=== PATIENT | female | born 1975 | race Caucasian/White ===

== ENCOUNTER 2017-06-11 08:01 | Day surgery (SDC) | payer OTHER ==
[2017-06-10] MEDS: CeFAZolin 2 Gm/50 mL D5W IV Premix IV SCH (06:00)
[2017-06-11] VITALS (14 sets, daily range): BP systolic 111–130; BP diastolic 63–81; PULSE 58–104; RESP 12–21; O2SAT 95–100
[~2017-06-11] VITALS: Ht 172.7 cm; Wt 92.0 kg
[2017-06-11] MEDS: Lactated Ringer's 1,000 ML IV SCH ×6 (05:00→22:33)
[2017-06-11] MEDS: CeFAZolin 2 Gm/50 mL D5W IV Premix IV SCH ×2 (06:00→10:30)
[~2017-06-11 08:01] MED LIST: ALBU8.5H2 INHALATION; CINN500C14 PO; Dextrose 10% 250 ML IV PRN; MULT-1018 PO; Phenazopyridine 97.5 mg Tablet PO PRN; vitamin d
[2017-06-11] MEDS ORDERED: EPHEDrine/NS 5 mg/mL 5 mL Syringe ONE (08:02)
[2017-06-11] MEDS ORDERED: fentaNYL-PF 50 mCg/mL 2 mL Inj ONE (08:02)
[2017-06-11] MEDS ORDERED: Morphine PF 1 mg/mL 10 mL Inj ONE (08:02)
[2017-06-11] MEDS ORDERED: Dexamethasone 4 mg/mL Inj ONE (08:02)
[2017-06-11] MEDS ORDERED: MetoCLOpramide 5 mg/mL 2 mL Inj ONE (08:02)
[2017-06-11] MEDS ORDERED: Rocuronium 10 mg/mL 5 mL Inj ONE (08:02)
[2017-06-11] MEDS ORDERED: Furosemide 10 mg/mL 4 mL Inj ONE (08:02)
[2017-06-11] MEDS ORDERED: Ondansetron 2 mg/mL 2 mL Inj ONE (08:02)
[2017-06-11] MEDS ORDERED: Lidocaine 1%-Epi 1:100,000 20 mL Inj INJ ONE ×2 (11:10→12:09)
[2017-06-11] MEDS ORDERED: Sodium Chloride LOK Flush 10 mL Syringe XX ONE (11:10)
[2017-06-11] MEDS ORDERED: Gentamicin 40 mg/mL 2 mL Inj IRRIGATION ONE (11:11)
[2017-06-11] MEDS ORDERED: Phenylephrine 10,000 mCg/mL Inj IVPUSH PRN (11:30)
[2017-06-11] MEDS ORDERED: Lactated Ringer's 1,000 ML IV SCH (11:30)
[2017-06-11] MEDS ORDERED: Dexamethasone 4 mg/mL Inj IVPUSH PRN (11:30)
[2017-06-11] MEDS ORDERED: HYDROmorphone 1 mg/mL Inj IVPUSH PRN (11:30)
[2017-06-11] MEDS ORDERED: Lactated Ringer's 500 ML IV PRN (11:30)
[2017-06-11] MEDS ORDERED: EPHEDrine Sulfate 50 mg/mL Inj IVPUSH PRN (11:30)
[2017-06-11] MEDS ORDERED: MetoCLOpramide 5 mg/mL 2 mL Inj IVPUSH PRN ×2 (11:30→14:05)
[2017-06-11] MEDS ORDERED: fentaNYL-PF 50 mCg/mL 2 mL Inj IVPUSH PRN (11:30)
[2017-06-11] MEDS ORDERED: Ondansetron 2 mg/mL 2 mL Inj IVPUSH PRN ×2 (11:30→14:05)
--- NOTE | 2017-06-11 11:30 | PCM.HPANE ---
Patient Data Date of Service: Jun 11, 2017 ([id number]) Surgeon Admitting Provider: Attending Provider:Malvin Muse MD Primary Care Physician:Zain Other Provider:Shirley Pal Anesthesia Reason for Visit Uterovag Prolapse,Cystocele,Rectocele,Incontinence Ht/WT & BMI Height (Feet): 5 Height (Inches): 8.00 Weight (Kilograms): 92.000 Body Mass Index 30.00 Allergies Coded Allergies: prednisone (Verified Allergy, Severe, dangerously tachycardic, 06/06/17) hydrocodone (Verified Allergy, Unknown, extremely nauseated, "felt crazy" , 06/06/17) Past Anesthesia History Anesthesia History: Denies:: Abnormal Airway, Anesthesia Reactions (vomiting after ), Difficult Intubation, Fam Anesthesia Reaction (mother- "ballistic" ) Diabetes History Hx Diabetes?: No MRSA MRSA: No Medications Hypertension Medication: No Home Meds Incl Beta Lynne: No Reported Medications [vitamin d] No Conflict CheckUnknown Dose DAILY 06/06/17 Cinnamon Bark (Cinnamon)500 Mg [id number] Mg PO DAILY 06/06/17 Multivitamin (Multi Vitamin Daily)1 Each Tablet1 Each PO DAILY 30 Days Ref 0 06/06/17 Albuterol HFA (Proair HFA)8.5 Gm Hfa.aer.ad2 Puffs INHALATION Q4H PRN For Shortness of Breath #1 INHALER 06/06/17 History History of ENT Problems?: Yes HEENT History: Positive for:: Hearing Problem 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) Denies:: Abnormal Airway Cataracts Difficult Intubation Dysphagia Glaucoma Sinus Problem Denture Type: None Teeth Condition: Within Normal Limits Hx of Heart Problems?: No Cardiovascular History: Denies:: AICD Abdominal Aortic Aneurism Atrial Fibrillation Chest Pain Edema Heart Murmur Hypertension Irregular Heartbeat Pacemaker Peripheral Vascular Rheumatic Fever Hx of Respiratory Problem?: Yes Respiratory History: Positive for:: Asthma Use of Inhalers / NEBS Denies:: COPD Emphysema Oxygen Administration Pneumonia Tuberculosis Use of C-PAP Machine Hx Neurologic Problems?: Yes Neurological History: Positive for:: Seizures (as teenager- petit mal- not for last 20 years ) Denies:: Alzheimer's Disease CVA Headaches Multiple Sclerosis Parkinson's Disease TIA Hx of GI Problems?: Yes Hx of Problems?: Yes Genitourinary History: Denies:: Urinary Tract Infection Other Pertinent History: self caths as indicated - urinary retention Female Hx: Denies:: Currently Problems with Breasts? Skin History: Denies:: History Skin Disorders? Pressure Ulcers Hx Musculoskeletal Problems?: Yes Musculoskeletal History: Positive for:: Osteoarthritis Denies:: Back Injury Degenerative Joint Fibromyalgia Joint Replacement Musculoskeletal Trauma (kneecaps- weak - from chronic prednisone ) Myasthenia Gravis Systemic Lupus Hx of Psycho/Social Problems?: No Psycho Social History: Denies:: Anxiety Hx Depression Hx Surgeries?: Yes (tonsil, ) Hx Any Other Health Problems?: Yes Other History: Denies:: Cancer Thyroid Disease History Blood Transfusions: Positive for:: Accept Blood Products? Denies:: Blood Transfusions Hx Diabetes: No Hx Alcohol Use: YesAlcoholic Drinks Per Day: 3-5 drinks weekHx Substance Use: NoHave You Smoked inLast 12 mo: No Stop/Bang S-Snoring: Do You Snore Loudly: No T-Tired: feel tired, fatigued: No O-Obsered: Observed not breath: No P-Blood Pressure: treated: No B- Body Mass Index > 35 kg/m2: No A- Age over 50: No N- Neck Large Circumference: No G- Gender Male: No CHING Total Score: 0 Risk Assessment Category Category 1A: Patient has history of documented sleep apnea, and HAS NOT received any narcotic, sedative or anesthesia administration during this stay. Category 1B: Patient has history of documented sleep apnea, and HAS received any narcotic , sedative or anesthesia administration during this stay Category 2: Patient has SUSPECTED Obstructive Sleep Apnea, and HAS received any narcotic , sedative or anesthesia administration during this stay. Category 3: Patient has SUSPECTED Obstructive Sleep Apnea and HAS NOT received narcotic, sedative or anesthesia administration during this stay. Category 4: Outpatient in Procedural Areas with known sleep apnea or who screen positive for High Risk via the STOP/BANG questionnaire. Exam Exam Vital Signs Vital Signs Date Time Temp Pulse Resp B/P Pulse Ox O2 Delivery O2 Flow Rate FiO2 06/11/17 08:30 35.6 82 17 111/81 96 Room Air General Appearance: Alert, Oriented X3, Cooperative, No Acute Distress HEENT/AIRWAY: MP 2 Lungs: Clear to Auscultation, Normal Air Movement Heart: Exam Unremarkable Meds/Labs/Diagnostics Admission Meds Current Medications Lactated Ringer's (Lr) 1,000 ml @ 120 mls/hr Q8H20M IV Last administered on 10:11; Start 06/11/17 at 05:00; Stop 06/11/17 at 13:19 Lidocaine/ Epinephrine (Xylocaine 1%-Epinephrine 1:100,000 Inj) 40 ml STK-MED ONCE INJ Last administered on 06/11/17 11:10; Start 06/11/17 at 11:10; Stop 06/11 at 11:13; Status DC Sodium Chloride (Saline Lucila Flush) 40 ml STK-MED ONCE XX Last administered on 11:10; Start 06/11/17 at 11:10; Stop 06/11/17 at 11:13; Status DC Gentamicin Sulfate (Gentamicin Inj) 80 mg STK-MED ONCE IRRIGATION Last administered on 06/11/17 11:11; Start 06/11/17 at 11:11; Stop 06/11/17 at 11:13; Status DC Plan Impression Patient chart reviewed, patient interviewed and anesthestic plan with risks, benefits, and alternatives discussed, and informed consent obtained. ASA Physical Status: ASA2 Mod Systemic Disease Anesthetic Plan: GA Bene/Risks/Altern/Consents: Yes HP Complete Prior to Induction: Yes Manny Ortega MD Jun 11, 2017 11:30
[2017-06-11] MEDS ORDERED: Sodium Chloride LOK Flush 10 mL Syringe IVFLUSH ONE (12:09)
[2017-06-11] MEDS ORDERED: Estrogens Conjugated 30 Gm Vaginal Cream VAGINAL ONE (13:24)
[2017-06-11] MEDS ORDERED: Lactated Ringer's 1,000 ML IV ONE (13:41)
[2017-06-11] MEDS ORDERED: hydrOXYzine Inj 50 MG/1 mL SDV IM PRN (14:00)
[2017-06-11] MEDS ORDERED: EPHEDrine Sulfate 50 mg/mL Inj IM PRN (14:00)
[2017-06-11] MEDS ORDERED: Promethazine Inj 12.5 MG in Dextrose 5%-Pha MIX 50 ML IV PRN (14:00)
--- NOTE | 2017-06-11 14:03 | PCM.ANEP1 ---
Post Anesthesia PACU Phase 1 Assessment Vital Signs Vital Signs Date Time Temp Pulse Resp B/P Pulse Ox O2 Delivery O2 Flow Rate FiO2 06/11/17 08:30 35.6 82 17 111/81 96 Room Air Anesthetic Administered: GA Level of Alertness: Awake, talking Pain: No Nausea or Vomiting: Yes CV Function & Hydration Stable: Yes Airway Device: Oxygen Delivery: Simple Mask Lungs: Clear to Auscultation, Normal Air Movement PACU Phase 2 Assessment Complications: No Patient Instructions Provided: N/A Manny Ortega MD Jun 11, 2017 14:03
[2017-06-11] MEDS ORDERED: Acetaminophen IV 1,000 MG in IV Premix 1 EACH IV PRN (14:05)
[2017-06-11] MEDS ORDERED: diphenhydrAMINE 25 mg Capsule PO PRN (14:05)
[2017-06-11] MEDS ORDERED: Alum-Mag Hydrox-Simeth 30 mL Suspension PO PRN (14:05)
[2017-06-11] MEDS ORDERED: hydrOXYzine Inj 50 MG/1 mL SDV IM ONE (14:08)
[2017-06-11] MEDS ORDERED: Albuterol 2.5 mg/3 mL Inhalation Solution NEB PRN (20:00)
--- NOTE | 2017-06-11 22:13 | PCM.SURGOP ---
Surgical Operative Report Date of Service: Jun 11, 2017 Pre Operative Diagnosis POPQ stage 2 anterior, posterior and apical Uterovaginal prolapse Stress incontinence in female Post Operative Diagnosis POPQ stage 2 Cystocele Deficient pubocervical/pubovesical fascia POPQ stage 2 Rectocele POPQ stage 2 Uterine prolapse and enterocele stress incontinence in female Procedure: 1. vaginal hysterectomy with bilateral salpingectomy, 2. anterior repair with Xenform graft augmentation 3. posterior repair 4. high uterosacral ligament vaginal vault suspension, enterocele repair 5. TVT-obturator sling and cystoscopy Surgeon and Coordinator Volunteer Services: Surgeon: Malvin Muse MD Assistants: Zuly [place] Indication for Procedure Her assessment to date includes: 1. Feeling of Incomplete bladder emptying; urodynamics revealed normal post- void residuals 2. Cystocele, midline N81.11 (618.01): 3. Rectocele N81.6 (618.04): 4. Uterovaginal prolapse, incomplete N81.2 (618.2): 5. Urgency of urination R39.15 (788.63): 6. Stress incontinence in female N39.3; urodynamic stress incontinence with normal leak point pressures The patient is not interested in a pessary. The prolapse and urinary issues are adversely affecting her quality of life. The patient is a candidate for a vaginal hysterectomy with bilateral salpingectomy, anterior repair and posterior repair with possible biologic graft augmentation, high uterosacral ligament vaginal vault suspension, enterocele repair and TVT-obturator sling. The patient signed the consent form. She agreed with the risks, benefits, and alternatives to surgery. The risks included but not limited to recurrence or persistence of prolapse, recurrence of persistence of incontinence, development of voiding dysfunction, development of urinary urgency, urgency incontinence, frequency, and need for intermittent self-catheterization or prolonged indwelling catheterization, injury to other organs including bladder, bowel, nerves or blood vessels. Need for blood transfusion, need for temporary colostomy or urinary stenting. Development of vaginal scarring, dyspareunia, defecatory dysfunction, recurring pain, hematoma formation, urinary tract infection, cellulitis, necrotizing fascitis, and medical risks including myocardial infarction, stroke or VTE. She also understood the FDA warnings associated with the use of vaginal mesh (dysparunia, vaginal erosion, erosion into bowel/bladder/urethra, requiring further surgery to correct these complications). The patient understood the risks and benefits and consented to surgery. Findings: see dictation Procedure Details SURGICAL TECHNIQUE: The patient was brought to the operating room. She was placed under general anesthesia. She was prepped and draped in the normal fashion for vaginal surgery. She was given a dose of IV ancef 2g intraoperatively. 1. Vaginal Hysterectomy and bilateral salpingectomy: Lidocaine 0.5% with 1:200,000 of epinephrine was infiltrated pericervically. A pericervical incision was made with a scalpel. Anteriorly, the bladder was sharply dissected off the cervix. Posteriorly, the cul de sac was entered with Sharp dissection. The bowels were packed with a mini-laparotomy sponge. The uterosacral ligaments were bilaterally clamped, divided and then tied in a transfixion fashion with 0- vicryl suture. Anteriorly, the Uterovesical peritoneum was entered with sharp dissection and the bladder was retracted upward with a right-angle retractor. The uterine vessels were then coagulated, and ligated using the Ligasure Impact System. The uterine body was delivered posteriorly. The utero-ovarian ligaments were clamped bilaterally, coagulated, ligated and then tied using 0-Vicryl suture. The ovaries and tubes appeared normal. We proceeded with bilateral salpingectomy. The tubes were clamped at their base and cauterized then excised with Ligasure Impact. The base was tied with 0-vicryl suture. The uterus/cervix, and tubes were sent to pathology. It was noted that the pedicles and cuff were hemostatic. 2. High uterosacral ligament vaginal vault suspension, cystoscopy and enterocele repair: Mini laparotomy sponges were packed to retract the bowel upwards. A pair of Allis clamps were placed along the intraperitoneal portions of the vagina at the 5 and 7 o'clock positions. Tension along these Allis clamps allowed for identification of the uterosacral ligaments bilaterally. A pair of 0 Vicryl sutures were passed around the uterosacral ligaments of the level of the ischial spine bilaterally, totalling 4. Cystoscopy was performed. Tension was applied along the vault sutures and spillage of pyridium-stained urine was noted briskly effluxing from both ureteric orifices. Next, two 3-0 Prolene sutures were placed transversely through the cul-de-sac peritoneum. This was performed while using a gloved finger in the rectum as to avoid penetrating the underlying rectal mucosa. Tying these sutures obliterated the enterocele. 3. Anterior colporrhaphy with Xenform graft augmentation: Lidocaine 0.5% with 1 /046820 epinephrine was infiltrated along the anterior vaginal wall mucosa. A midline vertical incision was made through the anterior vaginal wall. The vaginal wall was dissected off the underlying pubocervical and pubovesical fascia. The dissection was extended laterally beyond the ischial pubic rami. It was noted that the pubocervical and pubovesical fascial tissues were deficient and thin. The cystocele was plicated in 2 layers, the first layer with 2-0 Vicryl suture in interrupted fashion, the second layer with 2-0 Tycron suture in an interrupted fashion. A trapezoidal piece of Xenform graft was then incorporated atop the plicated area far laterally. The graft was secured to the obturator internus membrane. At the level of the bladder neck, an upside down triangular piece of graft was excised so that there was no over-support created along the level of the bladder neck. Apically , the graft was passed through the proximal uterosacral ligament sutures. A mild amount of excess anterior vaginal mucosa was excised. The vault suspension sutures were then passed through the planned apex of the vagina. Two were placed through the anterior apex and the other two, through the posterior apex. The vagina was then reapproximated using 3-0 Vicryl suture in a running-locked fashion. The high uterosacral ligament vaginal vault suspension sutures were tied and this elevated the apex of the vagina high up into the hollow of the sacrum. 3. Posterior colpoperineorrhaphy: Lidocaine 0.5% with 1:200,000 of epinephrine was infiltrated along the perineum and posterior vaginal wall mucosa. A midline incision was made through the perineum with a scalpel and a midline vertical incision was made through the posterior vaginal wall. The vaginal mucosa was dissected off the underlying rectovaginal tissues. It was noted the fascial tissues were sufficient. The rectocele was plicated in one midline layer using 2-0 Vicryl suture in an interrupted fashion. A mild amount of excess posterior vaginal mucosa was excised. The vagina was reapproximated with 3-0 vicryl suture in a running-locked fashion. The perineum was reapproximated using 2-0 Vicryl suture in an interrupted fashion. The skin was reapproximated using 3- 0 Vicryl suture in a subcuticular fashion. 5. TVT-Obturator sling and cystoscopy. Lidocaine 0.5% with 1/891592 epinephrine was infiltrated along the anterior vaginal wall mucosa at the level of the mid urethra. Midline vertical incision was made at that level, 2 periurethral tunnels were created with Metzenbaum scissors. Two stab incisions were created at the skin at the groin at a level 2 cm superior to the external urethral meatus and 2 cm lateral to the fold created between the vulva and thigh. Neumann catheter had already been inserted. A butterfly guide was inserted into the right periurethral tunnel, a curved helical needle was inserted on top of the guide and rotated out to the ipsilateral skin incision. The same procedure was performed on the contralateral side. Next the Neumann catheter was removed. Cystoscopy was performed. There was no inadvertent penetration of the sling through the vagina, urethra or bladder. In addition, the ureteric orifices were noted bilaterally to be functional by the brisk spillage of pyridium-stained urine. The bladder appeared normal. The plastic sheaths of the sling were removed. The bladder was filled with 300 mL of sterile water. Using the Crede maneuver, sling tension was appropriately adjusted. Also a thick right angle clamp was allowed to easily pass behind the sling so that the sling was placed in a tension-free manner. The sling ends were cut at the level of the skin. The skin was reapproximated using Mastisol, Steri-Strips and band-aids. The vagina was reapproximated using 3-0 Vicryl suture in a running fashion The vagina was packed with Premarin-lubricated packing. An indwelling neumann catheter was connected to straight drainage. The patient's hips were periodically deflexed during the case. There were no complications. The EBL was 250 ml. All sponges and instruments were accounted for. She was taken to the recovery room in stable condition. Complications There were no periprocedural complications identified. Surgical Specimen Removed: Yes Specimen sent to Pathology: Yes Surgical Specimen description: uterus/cervix, bilateral tubes Anesthetic Plan: GA Grafts, Implants: Grafts-See Implant Record, Implants-See Implant Record Output, Estimated Blood Loss: 250 (ml EBL) Blood Administration during umanzor: No Drains: None Catheters: Urethral 2 Way Neumann Post Operative Plan overnight stay in bed as outpatient as she requires a voiding trial in the am copies to: Malvin Muse MD; James Joyner MD; Zuly Washington William Andre Z MD Jun 11, 2017 22:13
[2017-06-12 04:25] VITALS: BP 99/66; PULSE 82; RESP 16; O2SAT 98
[2017-06-12] MEDS: Lactated Ringer's 1,000 ML IV SCH (06:35)
[2017-06-12 06:52] LABS: BASOPHILS % (AUTO) 0.2 % (0-3); EOSINOPHILS % (AUTO) 0 % (0-5); MONOCYTES % (AUTO) 8.1 % (4-12); Mean Corpuscular Hemoglobin 28.8 pg (27.0-35.0); Mean Corpuscular Volume 86.8 fL (81-100); NEUTROPHILS % (AUTO) 76.2 % (40-74); Platelet Count 300 bil/L (150-400)
[2017-06-12 07:58] VITALS: BP 101/65; PULSE 88; RESP 16; O2SAT 98
[2017-06-12] MEDS ORDERED: Heparin 5,000 Unit/mL Inj SUBQ SCH (08:30)
[2017-06-12] MEDS ORDERED: Senna-Docusate 8.6-50 mg Tablet PO SCH (08:30)
--- NOTE | 2017-06-12 12:03 | PCM.DIGYN ---
Surgical Discharge Instruction Dates of Hospitalization Date of Hospital Admission 06/11/17 as outpatient, overnight Providers Admitting Physician: Primary Care Physician: Nopcp Attending Physician: Malvin Muse MD Diagnosis at Time of Discharge Diagnosis at time of discharge POPQ stage 2 Cystocele Deficient pubocervical/pubovesical fascia POPQ stage 2 Rectocele POPQ stage 2 Uterine prolapse and enterocele stress incontinence in female Post-operative diagnosis POPQ stage 2 Cystocele Deficient pubocervical/pubovesical fascia POPQ stage 2 Rectocele POPQ stage 2 Uterine prolapse and enterocele stress incontinence in female Problems: Diet Discharge Diet: No restrictions Activity Discharge Activity-General: Restrict lifting to no greater than (10 lb for 6 wk ) Dressing and Incisional Care Dressing Care: Allow Steri Stripes to fall off Hygiene: May shower Follow Up Plan Follow-up appointment: Weeks ([address] Muse's MA, and in [address] Muse) Call your provider for: Fever, Chills, Shortness of breath, Vomitting, Drainage at incision, Heavy vaginal bleeding, Wound redness, Increasing pain Malvin Muse MD Jun 12, 2017 12:03
--- NOTE | 2017-06-12 12:07 | PCM.PNSURG ---
Subjective Date of Service: Jun 12, 2017 Date of Service: Jun 12, 2017 Visit Information: Reason for Visit Uterovag Prolapse,Cystocele,Rectocele,Incontinence Surgery/Surgery Date Post-Op Day # 1 Date of Admission: Hospital Day # Subjective: AVSS pain controlled eating ambulatory failed void trial Hct stable OR explained some dizziness (has had this with previous narcotic use - she received spinal duramorph which also caused pruritis) Gastrointestinal: Good Appetite Pain Management: PO Postop Activity: Ambulating Independently Objective Vital Sign- Last 8 Hours Date Time Temp Pulse Resp B/P Pulse Ox O2 Delivery O2 Flow Rate FiO2 06/12/17 07:58 36.8 88 16 101/65 98 Room Air 06/12/17 04:25 36.7 82 16 99/66 98 Room Air Intake and Output- Last 8 Hour 06/12/17 Cumulative From/Thru 07:00 06/06/17 15:49 - 06/12/17 06:45 Intake Total 1770 ml 4389 ml Output Total 2000 ml 3725 ml Balance -230 ml 664 ml Intake Oral 500 ml 500 ml IV Total 1270 ml 3889 ml Output Urine Total 2000 ml 3225 ml Estimated Blood Loss 500 ml General: Alert, Oriented X3, Cooperative Lungs: Clear to Auscultation Heart: Exam Unremarkable Abdomen: Benign, Soft Catheters: Urethral 2 Way Guadalupe (16 F catheter reinserted by Dr. Muse as she failed the void trial) Result Diagram: 06/12/17 0630 Assessment & Plan Impression stable for discharge today Problems: Plan Guadalupe teaching discharge home later today when ready f/u in 1 and 2 wk VTE Prophylaxis: Sub-Q Heparin (Unfractionated) Resuscitation Status: CPR: Attempt Resuscitation copies to: Malvin Muse MD, William Andre Z MD Jun 12, 2017 12:06
--- NOTE | 2017-06-16 17:58 | PATH ---
SURGICAL PATHOLOGY Attending Physician:Malvin Muse, CASE STATUS: Signed Out PATIENT NAME: MORGAN WARE PID: [id number] : 1975 DATE COLLECTED:06/11/2017 00:00 SPECIMEN: 1: Uterus +/- tubes/ovaries, except neoplastic, prolapse 2: Fallopian Tube, Biopsy CLINICAL HISTORY: UTEROVAGINAL PROLAPSE 1). UTERUS AND LEFT FALLOPIAN TUBE 2). RIGHT FALLOPIAN TUBE FINAL DIAGNOSIS: 1. & 2.UTERUS AND BILATERAL FALLOPIAN TUBES, HYSTERECTOMY AND BILATERAL SALPINGECTOMY: CERVIX NEGATIVE FOR NEOPLASM. WEAKLY PROLIFERATIVE ENDOMETRIUM NEGATIVE FOR NEOPLASM. MYOMETRIUM NEGATIVE FOR NEOPLASM. BILATERAL FALLOPIAN TUBES WITH RIGHT SIMPLE PARATUBAL CYST; NEGATIVE FOR NEOPLASM. [id number] GROSS DESCRIPTION: The specimens are received in formalin, labeled with the patient's name, and sublabeled as the following: (1) uterus and left fallopian tube; (2) right fallopian tube. (1) The specimen consists of a uterus (82 g, 4.2 cm AP, 8.3 cm SI, 4.6 cm ML) and a detached fimbriated fallopian tube (length- and 3.8 cm, diameter- 0.7 cm). The ovaries and second fallopian tube are absent. The cervix (2.4 cm AP, 3.2 cm ML) has a vaginal cuff (up to 2.0 cm in depth), transverse os and patent endocervical canal. The endometrium (average thickness-0.1 cm) is klein-pink smooth and flat. The myometrium (thickness-1.9 cm) is klein-white and unremarkable. The serosa is pale klein smooth and shiny. The fallopian tube has dark maroon smooth shiny serosa and a klein unremarkable lumen. Section code: (1A) anterior cervix; (1B) posterior cervix; (1C, 1D) anterior endomyometrium; (1E, 1F) posterior endomyometrium; (1G) fallopian tube, serially sectioned, claim service representative; (1H) fimbria, bivalved, entirely submitted. (2) The specimen consists of a fimbriated fallopian tube (length-4.8 cm, diameter-0.5 cm). The serosa is klein-solitario smooth and shiny with a paratubal cyst (0.7 x 0.5 x 0.4 cm) containing clear colorless fluid. The lumen is klein and unremarkable. Section code: (2A) fallopian tube, serially sectioned, claim service representative; (2B) fimbria, bivalved, entirely submitted. 06/13/17 MICRO DESCRIPTION: See diagnosis. ICD-9 CODES: CPT CODES: 1: 31356 2: 53873 Electronically Signed Out Bret Noguera MD, Ph.D. [facility] [address], [place] [address] Technical component performed at [facility], [facility] [address], [place], [address]
== END 2017-06-12 13:05 | disposition home or self-care (01) ==
LOC: SAS 08:01 → MOC 16:31 → SAS 06-12 13:05
PROVIDERS: ATTEND Obstetrics & Gynecology
PROC: 0UTC7ZZ Resection of Cervix, Via Natural or Artificial Opening (ICD-10-PCS; 2017-06-11)
PROC: 0UQF7ZZ Repair Cul-de-sac, Via Natural or Artificial Opening (ICD-10-PCS; 2017-06-11)
PROC: 0UT77ZZ Resection of Bilateral Fallopian Tubes, Via Natural or Artificial Opening (ICD-10-PCS; 2017-06-11)
PROC: 0USG0ZZ Reposition Vagina, Open Approach (ICD-10-PCS; 2017-06-11)
PROC: 0JUC0KZ Supplement of Pelvic Region Subcutaneous Tissue and Fascia with Nonautologous Tissue Substitute, Open Approach (ICD-10-PCS; 2017-06-11)
PROC: 0TSD0ZZ Reposition Urethra, Open Approach (ICD-10-PCS; 2017-06-11)
PROC: 0UT97ZZ Resection of Uterus, Via Natural or Artificial Opening (ICD-10-PCS; principal; 2017-06-11 09:45)
DX: N81.2 Incomplete uterovaginal prolapse (principal); N81.6 Rectocele; N39.3 Stress incontinence (female) (male); R39.15 Urgency of urination; R39.14 Feeling of incomplete bladder emptying; N30.30 Trigonitis without hematuria; J45.909 Unspecified asthma, uncomplicated

== ENCOUNTER 2017-06-16 18:44 | Emergency (ER) | payer OTHER ==
[~2017-06-16] VITALS: Ht 172.7 cm; Wt 95.5 kg
[~2017-06-16 18:44] MED LIST changes: -Dextrose 10% 250 ML IV PRN; -Phenazopyridine 97.5 mg Tablet PO PRN
[2017-06-16 18:48] VITALS: BP 102/74; PULSE 118; RESP 17; O2SAT 99
[2017-06-16] MEDS ORDERED: 0.9% Sodium Chloride 1,000 ML IV ONE (18:58)
--- NOTE | 2017-06-16 18:59 | ED.REPORT ---
HPI-Syncope Date of Service Jun 16, 2017 ED Provider: Raad Santos DO Pt is an otherwise healthy 41 year old female who presents to the ED via EMS after a syncopal episode prior to arrival. She c/o associated abdominal pain secondary to recent hysterectomy, change LOC, chills, and post-surgical vaginal bleeding. She denies any other symptoms. Pt presented to [facility] to ay, and she had her syncopal episode when in the room with the doctor. Pt reports that she had a hysterectomy 5 days ago. Nursing Notes Stated Complaint: SYNCOPAL Chief Complaint: Female Abdominal Pain Nursing Notes Reviewed: Yes Allergies: Coded Allergies: prednisone (Verified Allergy, Severe, dangerously tachycardic, 06/16/17) hydrocodone (Verified Allergy, Unknown, extremely nauseated, "felt crazy" , 06/16/17) Scheduled ([vitamin d]) Unknown Dose DAILY Cinnamon Bark (Cinnamon) 500 Mg Capsule 500 MG PO DAILY Multivitamin (Multi Vitamin Daily) 1 Each Tablet 1 EACH PO DAILY Scheduled PRN Albuterol HFA (Proair HFA) 8.5 Gm Hfa.aer.ad 2 PUFFS INHALATION Q4H PRN PRN For Shortness of Breath General Time Seen by Provider: 18:58 Chief Complaint Lost consciousness Hx Obtained From: Patient, EMS Arrived By: Ambulance Onset Occurred: Just prior to arrival Symptom Duration: Duration unknown Location: : Abdomen Quality: Painful Severity: Current: Moderate Severity: Maximum: Moderate Recent Healthcare: Recent doctor visit Similar Sx Previous: No Past Medical History Past Medical History TMJ disease Childhood seizures Reports: Asthma, GERD Past Surgical History Bladder prolapse repair Rectal prolapse Reports: Hysterectomy, Tonsillectomy Smoking History Unknown if Ever Smoker Social History Alcohol Use: "Social" Drug Use: Denies drug use Other Social History: Good social support Ambulatory Status Independent Review of Systems Constitutional: Reports: Chills, Denies: Fever Respiratory: Reports: Shortness of breath, Denies: Non-productive cough GI: Reports: Abdominal pain Neurologic: Reports: Change LOC, Syncope Complete sys rev & neg: except as marked. Additional Review of Systems Female: Reports: Vaginal bleeding - abnl Physical Exam Initial Vital Signs Vital Signs (First) Date Time Temp Pulse Resp B/P Pulse Ox O2 Delivery O2 Flow Rate FiO2 06/16/17 18:48 36.9 118 17 102/74 99 Room Air Initial VS: Reviewed Head / Eyes: Atraumatic, Normocephalic Neck: Supple, Full range of motion Abdomen / GI: Soft, Non-tender Upper Extremities: Vascular intact, Neuro intact Skin: Warm, Dry, No cyanosis Psychiatric: Mood/affect normal, Behavior normal General/Constitutional: Awake, Alert Respiratory / Chest: Atraumatic, Breath sounds NL, Breath sounds = bilat Dyspneic Cardiovascular: Regular rhythm, Heart sounds NL Heart Rate / Rhythm: Positive: Tachycardia Lower Extremity / Pelvis / MS: Atraumatic, Full range of motion Neurologic: Oriented X3, Speech NL, No motor deficits, No sensory deficits Abdomen: Soft Tenderness/Guarding/Rebound: Positive: Tender diffuse (mild) Interpretation & Diagnostics CT ABDOMEN: IMPRESSION: Mild postoperative stranding within the low pelvic midline soft tissue, but no abscess is suspected, and there is expected postsurgical change of hysterectomy. Reportedly some degree of rectal prolapse is present but this cannot be identified as a discrete entity in the area of the rectum at time of scanning. Dictated by: Alejandro Irwin M.D. on 06/16/2017 at 21:12 CT ANGIOGRAPHY: IMPRESSION: Mildly reduced inspiratory volume, no definite acute disease. Dictated by: Alejandro Irwin M.D. on 06/16/2017 at 21:15 Lab Results Interpretation Result Diagram: 06/16/170 06/16/17 192 Test 06/16/17 19:12 06/16/17 19:20 06/16/17 20:31 06/16/17 22:26 Urine Color Straw (YELLOW) Urine Appearance Clear (CLEAR,HAZY) Urine pH 6.0 (5.0-8.0) Urine Specific Adams 1.015 (1.003-1.035) Urine Protein Negativemg/dL (NEG,TRACE) Urine Glucose (UA) Negativemg/dL (NEGATIVE) Urine Ketones Negativemg/dL (NEGATIVE) Urine Occult Blood Negative (NEGATIVE) Urine Nitrite Negative (NEGATIVE) Urine Bilirubin Negative (NEGATIVE) Urine Urobilinogen Normalmg/dL (NORMAL) Urine Leukocyte Esterase Negative (NEGATIVE) Urine RBC 0-2/hpf (0-2) Urine WBC 0-5/hpf (0-5) Urine Epithelial Cells None/hpf (NONE-MOD) Urine Crystals None seen (NONE SEEN) Urine Bacteria None/hpf (NONE-FEW) Urine Hyaline Casts None/lpf (NONE) Urine Granular Casts None seen (NONE SEEN) Urine Waxy Casts None seen (NONE SEEN) Urine Red Blood Cell Casts None seen (NONE SEEN) Urine White Blood Cell Casts None seen (NONE SEEN) Urine Mucus None seen (None Seen) Urine Trichomonas None seen (NONE SEEN) Urine Yeast None (NONE SEEN) Urinalysis Comment None Urine Culture Reflexed Not indicated White Blood Count 10.6th/mm3 (3.8-10.1) Red Blood Count 4.57mil/mm3 (3.90-5.20) Hemoglobin 13.2g/dL (12.0-15.6) Hematocrit 38.5% (35.0-46.0) Mean Corpuscular Volume 84.2fL (81-100) Mean Corpuscular Hemoglobin 28.9pg (27.0-35.0) Mean Corpuscular Hemoglobin Concent 34.3% (32.0-37.0) Red Cell Distribution Width 12.6% (12.3-15.4) Platelet Count 354bil/L (150-400) Neutrophils (%) (Auto) 75.5% (40-74) Lymphocytes (%) (Auto) 15.5% (14-46) Monocytes (%) (Auto) 6.8% (4-12) Eosinophils (%) (Auto) 1.5% (0-5) Basophils (%) (Auto) 0.5% (0-3) D-Dimer 1.96mg/L FEU (<0.50) Sodium Level 139mEq/L (134-144) Potassium Level 4.3mEq/L (3.5-5.2) Chloride Level 103mEq/L (97-108) Carbon Dioxide Level 19mmol/L (18-29) Blood Urea Nitrogen 9mg/dL (6-20) Creatinine 0.72mg/dL (0.57-1.00) Estimat Glomerular Filtration Rate 129mL/min (>59) Glucose Level 159mg/dL (60-99) Calcium Level 8.8mg/dL (8.5-10.1) Magnesium Level 1.8mg/dL (1.6-2.6) Total Bilirubin 0.2mg/dL (0.0-1.2) Aspartate Amino Transf (AST/SGOT) 21U/L (0-50) Alanine Aminotransferase (ALT/SGPT) 31U/L (0-32) Alkaline Phosphatase 70U/L (25-150) Total Protein 6.7g/dL (6.4-8.4) Albumin 3.6g/dL (3.4-5.0) Human Chorionic Gonadotropin, Qual Negative (Negative) Hold Thomas Top Tube Received (Received) Hold Urine Received (Received) Troponin T 0.010ug/L (0.0-0.011) ECG Interpretation ECG Interpretation: Sinus tachycardia with a rate of 117. Probable left atrial enlargement. Normal ST segments Time: 19:04 Interpreted by: ED physician Re-Eval/Medical Decision Med Decision/Clinical Course Healthy 41-year-old female is roughly 5 days postop from significant pelvic surgery. She suffered a syncopal episode today associated with mild dyspnea. She presented tachycardic. Pulmonary emboli was high on the differential. EKG showed sinus tachycardia. CT angiogram was negative for pulmonary emboli. He had a scan continue through her abdomen to look for postoperative complication such as abscess or hemorrhage. That part of the scan is reassuring. Side from an elevated d-dimer laboratory work looked good. She was tachycardic as high as 140 however after 2 L of fluid or heart rate was 70. Troponins were negative. I think that this may have all been postural hypotension. Most importantly PE was ruled out adequately. Do recommend close outpatient follow- up. At discharge she felt great and she was not orthostatic. Source of Hx: Old records Re-Evaluation/Progress : Time of Eval: 22:37 Re-Evaluation/Progress Note: Pt rechecked. Informed pt of plan for discharge. Pt understands and agrees with plan for discharge. F/U instructions and RTER warnings given. All questions addressed. Counseled Regarding: Diagnosis, Lab results, Need for follow-up, When/why to return to ED Discharge & Departure Impression: Primary Impression: Syncope Syncope type: unspecified Qualified Code: R55 - Syncope and collapse Disposition: Home Discharge Condition All VS Reviewed: Yes Condition: Stable Patient Instructions: Syncope (ED) Additional Instructions: Your CT scan was reassuring. There were no signs of infection. Blood clot seems unlikely. Drinking plenty of liquids. Call your primary care provider tomorrow for a follow-up appointment this week. Return to the Emergency Department for any new or worsening symptoms. Referrals: Carola Bustillo MD Attestation Portions of this note were transcribed by Rylie Flores. I, Dr. Santos personally performed the history, physical exam and medical decision-making; I reviewed and confirmed the accuracy of the information in the transcribed note. Signed by : Michelle Peng, 06/16/17. copies to: Carola Bustillo MD, Raad Rutledge DO Jun 16, 2017 18:58 Rylie Gomes Jun 16, 2017 19:14
[2017-06-16] MEDS ORDERED: HYDROmorphone 0.5 mg/0.5 mL iSecure Syringe IVPUSH PRN (19:15)
[2017-06-16] MEDS ORDERED: Ondansetron 2 mg/mL 2 mL Inj IVPUSH PRN (19:15)
[2017-06-16 19:25] LABS: BASOPHILS % (AUTO) 0.5 % (0-3); EOSINOPHILS % (AUTO) 1.5 % (0-5); MONOCYTES % (AUTO) 6.8 % (4-12); Mean Corpuscular Hemoglobin 28.9 pg (27.0-35.0); Mean Corpuscular Volume 84.2 fL (81-100); NEUTROPHILS % (AUTO) 75.5 % (40-74); Platelet Count 354 bil/L (150-400)
[2017-06-16 19:31] LABS: APPEARANCE,URINE CLEAR (CLEAR,HAZY); COLOR,URINE STRAW (YELLOW); OCCULT BLOOD,URINE NEGATIVE (NEGATIVE); UROBILINOGEN,URINE NORMAL (NORMAL)
[2017-06-16 19:39] VITALS: BP 174/111; PULSE 74; RESP 16; O2SAT 96
[2017-06-16 20:00] LABS: TROPONIN T < 0.010 ug/L (0.0-0.011)
[2017-06-16 20:12] LABS: Magnesium 1.8 mg/dL (1.6-2.6)
--- NOTE | 2017-06-16 21:16 | DRSVH ---
PROCEDURE: CT ABDOMEN AND PELVIS WITH CONTRAST ([id number]) INDICATIONS: post op syncope, dyspnea,abd pain, shock, recent pelvic floor bowel surgery and hystere ctomy, reported prolapsed rectum. TECHNIQUE: After the administration of intravenous contrast, 5 mm thick sections acquired from the diaphragm to the symphysis. 5 mm coronal and sagittal reformats were acquired. For radiation dose reduction, the following was used: automated exposure control, adjustment of mA and/or kV according to patient siz e. COMPARISON: None. FINDINGS: Image quality: Excellent. ABDOMEN: Lung bases: Lung bases are clear. Heart size is normal. Solid organs: Liver and spleen are normal in size and enhancement. Gallbladder appears normal. Jarret iary system is non dilated. Pancreas enhances normally. No adrenal nodules. Kidneys demonstrate no rmal size and enhancement, without hydronephrosis. Peritoneum and bowel: Bowel loops demonstrate normal wall thickness and caliber. No free fluid or a ir. Nodes and vessels: No retroperitoneal or mesenteric adenopathy by size criteria. Aorta and inferior vena cava are normal in size. Miscellaneous: No ventral hernias. PELVIS: Genitourinary: Bladder wall thickness is normal. Prior hysterectomy. Miscellaneous: No inguinal hernias or adenopathy. There is mild stranding within the soft tissues o f the low midline pelvis, but no abnormal fluid collection is present and no operative complication i s seen. Bones: No suspicious bony lesions. No vertebral body compression fractures. IMPRESSION: Mild postoperative stranding within the low pelvic midline soft tissue, but no abscess i s suspected, and there is expected postsurgical change of hysterectomy. Reportedly some degree of re ctal prolapse is present but this cannot be identified as a discrete entity in the area of the rectum at time of scanning. Dictated by: Alejandro Irwin M.D. on 06/16/2017 at 21:12 Approved by: Alejandro Irwin M.D. on 06/16/2017 at 21:14
--- NOTE | 2017-06-16 21:20 | DRSVH ---
PROCEDURE: CT ANGIO CHEST PULMONARY EMBOLISM ([id number]) INDICATIONS: post op syncope, dyspnea,abd pain, shock TECHNIQUE: After the administration of intravenous contrast, 2 mm thick sections acquired from the pulmonary api wendy to the posterior costophrenic angles. 3-dimensional maximum intensity projection (MIP) coronal a nd sagittal reformats were then acquired through the thorax. For radiation dose reduction, the follo wing was used: automated exposure control, adjustment of mA and/or kV according to patient size. COMPARISON: [facility], CT, CT ABD PELVIS W CON, 06/16/2017, 20:30. FINDINGS: Image quality: Excellent. Pulmonary arteries: Pulmonary arteries are normal in size, and demonstrate no intraluminal filling d efects to suggest central pulmonary embolism. Lungs and pleura: Lungs are clear. No pleural effusions or pneumothorax. Central and peripheral ai rways are patent. Mediastinum: Heart size is normal, without pericardial effusion. No mediastinal or hilar adenopathy . Thoracic aorta is normal in caliber and enhancement. Esophagus is normal in caliber, without hiat al hernia. Bones and chest wall: No suspicious bony lesions. Ribs and thoracic spine appear intact throughout. Thyroid gland appears normal where well visualized. No axillary or supraclavicular adenopathy. Abdomen: Visualized upper abdominal solid organs appear normal in the early arterial phase of enhanc ement. IMPRESSION: Mildly reduced inspiratory volume, no definite acute disease. Dictated by: Alejandro Irwin M.D. on 06/16/2017 at 21:15 Approved by: Alejandro Irwin M.D. on 06/16/2017 at 21:19
[2017-06-16] MEDS ORDERED: 0.9% Sodium Chloride 1,000 ML IV SCH (21:35)
[2017-06-16 22:47] VITALS: BP 114/89; PULSE 83; RESP 20; O2SAT 98
== END 2017-06-16 19:25 | disposition home or self-care (01) ==
LOC: SED 18:44
DX: R55 Syncope and collapse (principal); Z90.710 Acquired absence of both cervix and uterus; K21.9 Gastro-esophageal reflux disease without esophagitis; J45.909 Unspecified asthma, uncomplicated; M26.609 Unspecified temporomandibular joint disorder, unspecified side; Z98.890 Other specified postprocedural states; Z88.5 Allergy status to narcotic agent; Z88.8 Allergy status to other drugs, medicaments and biological substances
CPT/HCPCS: 36415; 71275; 74177; 80053; 81000; 83735; 84484; 84703; 85025; 85378; 93005; 96360; 96361; 99285; J7030; Q9967